=== PATIENT | male | born 1970 | race Caucasian/White ===

== ENCOUNTER 2020-11-09 08:33 | Emergency (ER) | payer OTHER ==
[2020-11-09 09:42] LABS: Bacteria/HPF None Seen HPF (None Seen); Bilirubin Negative (Negative); Blood, Urine Negative (Negative); Clarity Turbid (Clear); Glucose, Urine (Dipstick) Normal (Negative); Ketone, Urine Trace mg/dL (Negative); Leukocyte Negative Leu/uL (Negative); Nitrite Negative (Negative); Protein, Urine (Dipstick) 50 mg/dL (Neg-Trace); RBC/HPF 0-3 HPF (0-3); Specific Gravity, Urine 1.036 (1.002-1.036); Squamous Epithelial None Seen HPF (0-3); WBC/HPF 0-3 HPF (0-3); pH, Urine 5.5 (5.0-9.0)
[2020-11-09] MEDS ORDERED: Morphine 4 MG/ML VIAL ONE (09:56)
[2020-11-09] MEDS ORDERED: Ondansetron PF 4 MG/2 ML Vial ONE (09:56)
[2020-11-09 10:10] LABS: #Lymphocytes 1.3 thou/uL (1.20-3.40); #Monocytes 0.8 thou/uL (0.11-0.59); %Basophils 0.1 % (0.0-1.0); %Eosinophils 0.3 % (0.0-10.0); %Lymphocytes 8.5 % (21.0-51.0); %Neutrophils 86.1 % (42.0-75.0); Hemoglobin 18.3 g/dL (14.0-18.0); Mean Corpuscular HGB CONC 32.4 g/dL (32.0-36.0); Mean Corpuscular Hemoglobin 30.1 pg (27.0-31.0); Mean Corpuscular Volume 92.8 fL (78.0-98.0); Mean Platelet Volume 8.3 fL (7.4-10.4); Platelet Count 260 thou/uL (130-400); Red Blood Cell (RBC) Count 6.08 mill/uL (4.70-6.10); White Blood Cell (WBC) Count 15.1 thou/uL (4.8-10.8)
[2020-11-09 10:44] LABS: ALT (SGPT) 53 U/L (8-55); AST (SGOT) 23 U/L (5-34); Albumin 4.2 g/dL (3.5-5.0); Alkaline Phosphatase 74 U/L (40-110); Anion Gap 16 mmol/L (10-20); BUN (Urea Nitrogen) 16 mg/dL (8.4-25.7); Bilirubin, Total 0.7 mg/dL (0.2-1.2); Calc. Creatinine Clearance 0 mL/min (70-130); Calcium 9.8 mg/dL (7.8-10.44); Carbon Dioxide 26 mmol/L (22-29); Chloride 102 mmol/L (98-107); Globulin 2.6 g/dL (2.4-3.5); Glucose 118 mg/dL (70-105); Lipase 25 U/L (8-78); Potassium 4.3 mmol/L (3.5-5.1); Protein, Total 6.8 g/dL (6.0-8.3); Sodium 140 mmol/L (136-145)
== END 2020-11-09 12:20 | disposition home or self-care (01) ==
LOC: ERS 08:33
DX: K56.600 Partial intestinal obstruction, unspecified as to cause (principal); K52.9 Noninfective gastroenteritis and colitis, unspecified; I10 Essential (primary) hypertension; E78.00 Pure hypercholesterolemia, unspecified; F17.210 Nicotine dependence, cigarettes, uncomplicated; Z79.899 Other long term (current) drug therapy
CPT/HCPCS: 74177; 80053; 81003; 81015; 83690; 85025; 96374; 96375; J2270; J2405